=== PATIENT | female | born 1940 | race Caucasian/White ===

== ENCOUNTER 2019-11-26 09:58 | Outpatient (CLI) | payer MEDICARE, OTHER ==
--- NOTE | 2019-11-27 08:29 | Mammography Report ---
BILATERAL DIGITAL SCREENING MAMMOGRAM 3D/2D: 11/26/2019 CLINICAL: Routine screening. Comparison is made to exams dated: 04/17/2018 mammogram, 02/15/2017 mammogram, and 08/20/2015 mammogram - [facility]. There are scattered fibroglandular elements in both breasts. There is an asymmetry in the left breast middle depth central to the nipple seen on the craniocaudal view only. No other significant masses, calcifications, or other findings are seen in either breast. IMPRESSION: INCOMPLETE: NEEDS ADDITIONAL IMAGING EVALUATION The asymmetry in the left breast is indeterminate. Additional views with possible ultrasound are rec ommended. This exam was interpreted at Station ID: [id number]. NOTE: For mammograms, a report in lay terms will be sent to the patient. Approximately 15% of breast malignancies will not be visualized mammographically. In the management of a palpable breast mass, a negative mammogram must not discourage biopsy of a clinically suspicious lesion. Electronically Signed By: Radha Garcia M.D. lk/:11/26/2019 12:27:41 ACR BI-RADS Category 0: Incomplete 3340F B -Scattered fibroglandular 0 Mammo and US [id number] Immediate follow-up B
== END 2019-11-26 09:59 | disposition home or self-care (01) ==
LOC: DI.N 09:58
PROVIDERS: ATTEND Obstetrics & Gynecology
DX: Z12.31 Encounter for screening mammogram for malignant neoplasm of breast (principal); R92.8 Other abnormal and inconclusive findings on diagnostic imaging of breast
CPT/HCPCS: 77063; 77067

== ENCOUNTER 2019-12-20 13:33 | Outpatient (CLI) | payer MEDICARE, OTHER ==
--- NOTE | 2019-12-21 11:10 | Mammography Report ---
UNILATERAL LEFT DIGITAL DIAGNOSTIC MAMMOGRAM 3D/2D: 12/20/2019 CLINICAL: Additional evaluation requested from prior study. Patient returns today to evaluate asymmet ry in left breast. Comparison is made to exams dated: 04/17/2018 mammogram - [facility], 11/26/2019 mammogr am - [facility], 02/15/2017 mammogram, and 08/20/2015 mammogram - [facility]. There are scattered fibroglandular elements in left breast. There is a round asymmetry in the left breast middle depth central to the nipple seen best on the fabrication and layout craftsman niocaudal view. This is seen in additional views and localizes to 12:00. This is less prominent and decreased in size. No other significant masses or calcifications are seen in the breast. IMPRESSION: INCOMPLETE: NEEDS ADDITIONAL IMAGING EVALUATION The round asymmetry in the left breast is indeterminate. An ultrasound is recommended. This was per formed immediately following this exam. This exam was interpreted at Station ID: [id number]. NOTE: For mammograms, a report in lay terms will be sent to the patient. Approximately 15% of breast malignancies will not be visualized mammographically. In the management of a palpable breast mass, a negative mammogram must not discourage biopsy of a clinically suspicious lesion. Electronically Signed By: Marycruz lares/:12/20/2019 15:00:59 ACR BI-RADS Category 0: Incomplete 3340F PARENCHYMAL PATTERN: (A) - The breast(s) demonstrate(s) scattered fibroglandular densities. BI-RADS CATEGORY: (0) - 0 Ultrasound [id number] Immediate follow-up LATERALITY: (B)
--- NOTE | 2019-12-21 11:10 | Ultrasound Report ---
LIMITED ULTRASOUND OF LEFT BREAST: 12/20/2019 CLINICAL: Patient returns today to evaluate asymmetry in left breast. Comparison is made to exams dated: 11/26/2019 mammogram - [facility], 04/17/2018 mamm ogram, 02/15/2017 mammogram, and 08/20/2015 mammogram - [facility]. Color flow and real-time ultrasound of the left breast 12 o'clock region were performed. Mobley scale images of the real-time examination were reviewed. There is a benign 0.5 cm x 0.4 cm x 0.2 cm oval cyst in the left breast at 12 o'clock middle depth 2 cm from the nipple. This correlates with mammography findings. Color flow imaging demonstrates that there is no vascularity present. IMPRESSION: BENIGN There is no sonographic evidence of malignancy. The 0.5 cm x 0.4 cm x 0.2 cm oval cyst in the left breast is consistent with a simple cyst and is ramirez ign. Return to annual mammogram screening schedule is recommended. Findings and recommendations were conveyed to the patient at time of exam. This exam was interpreted at Station ID: [id number]. Electronically Signed By: Marycruz lares/:12/20/2019 15:37:34 Ultrasound BI-RADS: 2 Benign BI-RADS CATEGORY: (2) - 2 Mammogram [id number] return to screening LATERALITY: (B)
== END 2019-12-20 13:34 | disposition home or self-care (01) ==
LOC: DI 13:33
PROVIDERS: ATTEND Family Medicine
DX: N60.02 Solitary cyst of left breast (principal)
CPT/HCPCS: 76642

== ENCOUNTER 2022-07-13 09:44 | Outpatient (CLI) | payer MEDICARE, OTHER ==
--- NOTE | 2022-07-13 10:34 | SLEEP CARE CONSULTATION ---
Information from patient questionnaire entered by Yanet Brady. I have reviewed and concur with the information entered by Yanet Brady. This document represents the service I personally performed and the decisions made by me, Alexandra Negro ARNP. History of Present Illness Service Date and Time: 07/13/2022 0944 Reason for Visit: New patient, sleep apnea on CPAP therapy Chief Complaint: reports: Other (TRANSFER FROM [employer]) Usual bedtime: 11-12 Time it takes to fall asleep: 20-30MINS Snores at night: Yes Observed to quit breathing while asleep: Yes Number of times waking at night: 0-1 Reasons for waking at night: reports: Bathroom, Other ([facility]). denies: Choking, Gasping for air Toss, Turn, or Twitch while sleeping: Yes Recalls having dreams: Yes Usually gets out of bed at: 6-7 Feels refreshed in the morning: Yes Morning headache: No Sleepy or fatigued during the day: Yes Ever fallen asleep while driving: No Takes day naps: Yes Dreams during day naps: No Prior sleep studies: Yes Year and Where: [facility] 10/2020 Additional HPI information: GONZALO ARRIOLA was previously diagnosed to have unknown, AHI unknown, obstructive sleep apnea-hypopnea syndrome and comes in today to establish care for CPAP therapy. - Parasomnia Symptoms Ever been unable to move upon waking from sleep: No Walks in sleep: No Talks in sleep: No Ever acted out dreams in sleep: No Ever felt weak in the knees when startled or emotional: No Bothered by creepy, crawly, restless sensations in legs: Yes Problems with memory or concentration: No CPAP Compliance Data - Data Reviewed with Patient Average duration of nightly device use: 6 hours 26 minutes Compliance rate %: 93 (88/90 days used) Current pressure setting (cmH2O): 8-14 Average residual AHI: 1.6 Central apnea: 0.4 Obstructive apnea: 0.2 Hypopnea: 0.9 Average large leak: 6.8 lpm Compliance data discussion: Patient is using [employer] at work for her supplies. She has a ResMed Airsense 10 that she received in 10/2019. She is using a ResMed N20 nasal cushion mask. She states she changes her mask cushion about 2 times a month. Subjective Missed days of use due to: reports: other (power outage) Patient concerns: reports: dry mouth, nose, throat (occasional). denies: aerophagia, mask discomfort, air blowing in eyes, mask leak noise, condensation in mask/hose, nasal congestion, epistaxis Observed to snore while using device: No Current pressure setting perceived as: comfortable On therapy, patient: reports: sleeping better, awakening more refreshed, being more awake and alert during the day, more rested overall. denies: drowsiness while driving Initial [place] Sleepiness Scale score: 9 (07/13/22) Past Medical History Past Medical History: reports: Hypertension, Claustrophobia, Diabetes, Arrythmia (Atrial fibrillation), Other (essential tremors) Social History The patient's occupation is a RE. Patient is and lives in . Have you smoked in the past 12 months: No Years of smokin Quit date: 1962 Alcohol use: Yes Alcohol amount and frequency: OCCASSIONAL Caffeine use: Yes Caffeine amount and frequency: 2-3X DAY Family History Family history of sleep disordered breathing: Yes (SON, snoring) Allergies and Home Medications Known drug allergies: Yes (ERYTHROMYCIN, PARADOXA, ZOCOR, CEPHALEXIN, LAYTEX) Drug allergies reviewed: Yes Home medication list reviewed: Yes (updated list in EMR) Review of Systems Cardiovascular: reports: high blood pressure, irregular heart rate or pulse (Afib and heart murmur at ) Gastrointestinal: denies: heartburn Neurological: reports: other (ESSENTIAL TREMORS). denies: headaches Psychiatric: reports: claustrophobia. denies: anxiety, depression Endocrine: reports: sluggishness Musculoskeletal: reports: joint pain, other ([facility]) Immunologic: reports: sneezing Physical Exam Vital signs obtained and entered by: YANET Mcmullen MA Blood Pressure: 148/60 (LEFT ARM) Cuff size: regular Heart Rate: 65 O2 Saturation: 99 Height: 5 ft 7 in Weight: 186 lb 6.4 oz Body Mass Index: 29.2 BMI Classification: Overweight Neck circumference: 16 Heart: regular rate and rhythm, murmur Lungs: clear bilaterally Impression and Plan 1. Obstructive Sleep Apnea-Hypopnea Syndrome, unknown, with good treatment compliance and good apnea control. On CPAP therapy, the patient has better sleep quality and is more rested overall. Patient will occasionally go through times when she is getting a dry mouth. She may be sleeping with mouth open. I advised her to try a chinstrap to keep mouth closed and she voiced understanding. We do not have a copy of her sleep study, it was requested again today. Once we have a copy of the sleep study I will update [employer] on her supplies (including the chinstrap). Patient's apnea severity and rationale for treatment to reduce apnea, improve sleep quality and reduce cardiovascular and cerebrovascular events was reviewed. I also reviewed the benefit of consistent device use of CPAP for hypertension, arrhythmia and diabetes. 2. Overweight, unspecified. Currently patients BMI is 29.2. Obesity increases the risk of apnea, CPAP pressure requirements and overall health risks especially cardiovascular and diabetes. Thus patient is advised to lose weight. * Continue auto CPAP pressure at 8-14 cmH2O * Obtain copy of sleep study prior to ordering supplies * Update supplies * Notify me if snoring with mask or feeling that the pressure is too much or too little * Attempt to lose weight * Call this office if any problems using CPAP * Return for follow up in 1 year, or sooner if concerns arise Counseling Topics: Spare mask, Weight loss health impact Visit Type: In Office Time Spent with Patient (minutes): 35 Provider Statement: I spent 100% of the Face to Face Visit with the patient with greater than 50% spent counseling the patient and coordination of care.
[2022-07-13 10:35] VITALS: BP 148/60
== END 2022-07-13 09:45 | disposition home or self-care (01) ==
LOC: SC 09:44
PROVIDERS: ATTEND Nurse Practitioner Family
DX: G47.33 Obstructive sleep apnea (adult) (pediatric) (principal); E66.3 Overweight; Z68.29 Body mass index [BMI] 29.0-29.9, adult
CPT/HCPCS: 99203; G0463; 99212

== ENCOUNTER 2023-07-14 10:42 | Outpatient (CLI) | payer MEDICARE, OTHER ==
--- NOTE | 2023-07-14 11:21 | Sleep Patient Instructions ---
Sleep Center Visit Summary - Patient Visit Information Reason for Visit: Annual follow-up - Patient Instructions Additional Instructions: You will continue with CPAP therapy with pressure set at 8-14 cmH2O. A supply prescription will be updated with your DME. We encourage you to continue to try to lose weight. Please follow up with the sleep care office in 1 year. - Clinic Information Contact: [facility] [address] [place] [address] [email or web address] T: [phone]
--- NOTE | 2023-07-14 11:26 | SLEEP CARE CONSULTATION ---
Information from patient questionnaire entered by Yanet Brady. I have reviewed and concur with the information entered by Yanet Brady. This document represents the service I personally performed and the decisions made by me, Alexandra Negro ARNP. History of Present Illness Service Date and Time: 07/14/2023 1042 Previous diagnosis: Severe, Obstructive Sleep Apnea-Hypopnea Syndrome AHI: 30.3 (05/23/2019) Reason for follow up: annual (LAST SEEN 07/2022) Equipment type: CPAP (RESMED Airsense 11; S/U 10/20/2019) Equipment obtained from: Other ([employer]; getting supplies) Mask style: Nasal Backup mask available: Yes Last cushion change: 1 week Prior sleep studies: Yes Year and Where: [facility] 10/2020 HPI additional information: GONZALO ARRIOLA was diagnosed to have severe, AHI 30.3, obstructive sleep apnea- hypopnea syndrome and returned today for CPAP therapy annual follow-up. Sleep Study - Results Prior sleep studies: Yes Year and Where: [facility] 10/2020 CPAP Compliance Data - Data Reviewed with Patient Average duration of nightly device use: 6 HRS 29 MINS Compliance rate %: 96 (07/12/22-07/11/23; 357/365 days used) Current pressure setting (cmH2O): 8-14 Average residual AHI: 2.8 Central apnea: 0.6 Obstructive apnea: 0.3 Hypopnea: 1.8 Average large leak: 8 L/min Subjective Missed days of use due to: reports: travel, other (power outages) Patient concerns: reports: air blowing in eyes, nasal congestion (depends on allergies), dry mouth, nose, throat (occasionally now, improved). denies: aerophagia, mask discomfort, mask leak noise, condensation in mask/hose, epistaxis Observed to snore while using device: No Current pressure setting perceived as: comfortable On therapy, patient: reports: sleeping better, awakening more refreshed, being more awake and alert during the day, more rested overall. denies: drowsiness while driving Initial [place] Sleepiness Scale score: 9 (07/13/22) Current [place] Sleepiness Scale score: 10 (07/14/23) Allergies and Home Medications Known drug allergies: Yes (as listed) Drug allergies reviewed: Yes Home medication list reviewed: Yes (as listed in EMR) Review of Systems Review of systems same as previous: Yes (NO CHANGE) Physical Exam Vital signs obtained and entered by: YANET Mcmullen MA Blood Pressure: 171/72 (LEFT) Cuff size: wrist Heart Rate: 79 O2 Saturation: 96 Height: 5 ft 7 in Weight: 199 lb 6.4 oz Weight change since last visit: 13 lb gain Body Mass Index: 31.2 BMI Classification: Obese Impression and Plan 1. Obstructive Sleep Apnea-Hypopnea Syndrome, severe, with good treatment compliance and good apnea control. On CPAP therapy, the patient has better sleep quality and is more rested overall. Patient has significant improvement of their sleep apnea and is satisfied with current CPAP therapy. Patient's apnea severity and rationale for treatment to reduce apnea, improve sleep quality and reduce cardiovascular and cerebrovascular events was reviewed. I also reviewed the benefit of consistent device use of CPAP for hypertension, arrhythmia, diabetes. 2. Obesity, unspecified. Currently patients BMI is 31.2. She has gained weight. Obesity increases the risk of apnea, CPAP pressure requirements and overall health risks especially cardiovascular and diabetes. Thus patient is advised to lose weight. * Continue auto CPAP pressure at 8-14 cmH2O * Update supply prescription * Notify me if snoring with mask or feeling that the pressure is too much or too little * Attempt to lose weight * Call this office if any problems using CPAP * Return for follow up in 12 months, or sooner if concerns arise Counseling Topics: Spare mask, Weight loss health impact Prescriptions: Device supplies Follow up with Sleep Care in: 1 year Visit Type: In Office Time Spent with Patient (minutes): 21 Provider Statement: I spent 100% of the Face to Face Visit with the patient with greater than 50% spent counseling the patient and coordination of care.
[2023-07-14 11:34] VITALS: BP 171/72; O2SAT 96
== END 2023-07-14 10:43 | disposition home or self-care (01) ==
LOC: SC 10:42
PROVIDERS: ATTEND Nurse Practitioner Family
DX: G47.33 Obstructive sleep apnea (adult) (pediatric) (principal); E66.9 Obesity, unspecified; Z68.31 Body mass index [BMI] 31.0-31.9, adult
CPT/HCPCS: 99213; G0463; 99212